=== PATIENT | male | born 1965 | race Caucasian/White ===

== ENCOUNTER 2019-03-31 15:39 | Emergency (ER) | payer OTHER ==
[~2019-03-31] VITALS: Ht 185.4 cm; Wt 77.1 kg
[2019-03-31] MEDS ORDERED: DEPAKOTE125 MG PO (15:42)
[2019-03-31] MEDS ORDERED: WELLBUTRIN XL150 M1 ORAL (15:42)
[2019-03-31] MEDS ORDERED: KLONOPIN2 MG PO (15:42)
--- NOTE | 2019-03-31 15:49 | NUR ---
ED Nurse Note: PT BROUGHT IN BY [facility], PER EMS REPORT PT WAS COMING DOWN FROM A UPPER BUNK BED AND FELL ON HIS LEG, CURRENTLY C/O LEFT LEG PAIN. NOTED ABRASION AND CONTUSION ON DANIEL KNEE AND LEGS, NOTED SMALL LAC AND CONTUSION ON LEFT EYE AREA NO ACTIVE BLEEDING AT THIS TIME NOTED. ER PROVIDER AT THE BEDSIDE. CMS INTACT AND CAP REFILL <3SEC, +2 PEDAL PULSES. PT DENIES LOC, PT AA&OX4, GCS=15 NOTED. WILL CONT MONITOR.
[2019-03-31] MEDS ORDERED: Morphine Sulfate 2mg/ml Inj(IV/IM USE ONLY) IM ONE (16:00)
[2019-03-31] MEDS ORDERED: Tetanus/Diptheria/Pertussis IM ONE (16:30)
--- NOTE | 2019-03-31 16:44 | Diagnostic Imaging Report ---
FILM PELVIS: Single image FINDINGS: Displaced fracture of the left femoral neck with shortening and varus deformity. No evidence of dislocation. Lower lumbar spondylosis discogenic change. IMPRESSION: Displaced fracture of the left femoral neck with shortening and varus deformity. No evidence of dislocation. <MYCVCSECTION> Critical Value Communications 03 31 19 16:40 Call Doctor Regarding Above results, called Kofi HERNANDEZ on 03 31 16:39 (-07:00)
[2019-03-31] MEDS ORDERED: Lidocaine 1% Plain 30 ml INJ ONE (16:45)
--- NOTE | 2019-03-31 16:48 | Diagnostic Imaging Report ---
History: PAIN Exam: XR LEFT FEMUR 2 views, 4 total images Comparison: None available FINDINGS: Displaced fracture of the left femoral neck with shortening and varus deformity. Not much osseous component of the left femoral neck is identified and unclear if this is due to comminution or potential degree of resorption if possible subacute setting, clinically correlate. IMPRESSION: Displaced fracture of the left femoral neck with shortening and varus deformity. Not much osseous component of the left femoral neck is identified and unclear if this is due to comminution or potential degree of resorption if possible subacute setting, clinically correlate.
--- NOTE | 2019-03-31 17:02 | NUR ---
ED Nurse Note: Blood specimen sent.
[2019-03-31 17:12] VITALS: BP 138/89
[2019-03-31 17:17] LABS: HEMATOCRIT 46.6 % (42.0-52.0); HEMOGLOBIN 15.5 G/DL (14.2-18.0); MEAN CORPUSCULAR VOLUME 96 FL (80-99); PLATELET COUNT 155 K/UL (150-450); RED BLOOD COUNT 4.87 M/UL (4.70-6.10); RED CELL DISTRIBUTION WIDTH 11.4 % (11.6-14.8)
[2019-03-31 17:18] LABS: BASOPHILS % (AUTO) 0.7 % (0.0-2.0); LYMPHOCYTES % (AUTO) 5.4 % (20.0-45.0); MONOCYTES % (AUTO) 7.6 % (1.0-10.0); NEUTROPHILS % (AUTO) 86.3 % (45.0-75.0)
--- NOTE | 2019-03-31 17:21 | Diagnostic Imaging Report ---
History: FALL Exam: CT HEAD Without Contrast Technique more: CTDI is 71.30 mGy and DLP is 2298.60 mGy-cm. Technique more: One or more of the following dose reduction techniques were used: automated exposure control, adjustment of the mA and or kV according to patient size, use of iterative reconstruction technique. Comparison: None available FINDINGS: Motion and right frontal ring artifact limits the evaluation. No evidence of intracranial hemorrhage, mass effect, calvarial fracture or large vascular territory acute infarct identified. The ventricles appear within limits and midline. Old appearing bilateral caudate and right basal ganglia lacunar infarcts noted. IMPRESSION: Motion and right frontal ring artifact limits the evaluation. No evidence of intracranial hemorrhage, mass effect, calvarial fracture or large vascular territory acute infarct identified. Old appearing bilateral caudate and right basal ganglia lacunar infarcts noted.
--- NOTE | 2019-03-31 17:25 | Emergency Room Report ---
History of Present Illness General Chief Complaint: Lower Extremity Injury Source: Patient Present Illness HPI 53-year-old male brought in by EMS complaining of left thigh/ hip pain and left eyebrow laceration fall last night and this morning. Patient states that he was climbing onto bunk bed and fell. Unable to weight-bear. Denies shortness of breath, chest pain, abdominal pain. Patient lives at an assisted living facility. Unknown last tetanus vaccine. Allergies: Coded Allergies: NSAIDS (NON-STEROIDAL ANTI-INFLAMMA (Unverified Allergy, Unknown, 03/31/19) PROCHLORPERAZINE (Verified Allergy, Unknown, 03/31/19) Uncoded Allergies: NSAIDS (Allergy, Unknown, 03/31/19) Patient History Past Medical History: psych hx, other - polycystic kidney disease Past Surgical History: none Social History: Reports: smoking Nursing Documentation-[facility] Past Medical History: No History, Except For Hx Cancer: No - POLYCYSTIC KIDNEY DISEASE History Of Psychiatric Problem: Yes Review of Systems All Other Systems: negative except mentioned in HPI Physical Exam Vital Signs Date Time Temp Pulse Resp B/P (MAP) Pulse Ox O2 Delivery O2 Flow Rate FiO2 03/31/19 15:36 100.2 99 18 112/96 (101) 94 Room Air Sp02 EP Interpretation: reviewed Respiratory: chest non-tender, lungs clear, normal breath sounds, speaking full sentences Cardiovascular #1: regular rate, rhythm, no edema Musculoskeletal: tender - tenderness to left hip. Neurologic: normal inspection, alert, oriented x3 Skin: warm/dry, other - 1.2cm laceration above left lateral eyebrow Procedures Laceration/Wound Repair Laceration/Wound Repair : Consent: Verbal Wound's Depth, Shape: linear Wound Explored: clean Irrigated w/ Saline (ccs): 50 Betadine Prep?: Yes Anesthesia: 1% Lidocaine Volume Anesthetic (ccs): 3 Wound Debrided: None Wound Repaired With: sutures Suture Size/Type: 6:0, proline Number of Sutures: 4 Layer Closure?: No Sterile Dressing Applied?: Yes Patient Tolerated: Well Complications: None Medical Decision Making PA Attestation This patient was seen under the direct supervision of Dr. Matute, who directed all aspects of care and diagnostic interpretation. Diagnostic Impression: Primary Impression: Hip fracture Qualified Codes: S72.002A - Fracture of unspecified part of neck of left femur , initial encounter for closed fracture Additional Impression: Eyebrow laceration Qualified Codes: S01.112A - Laceration without foreign body of left eyelid and periocular area, initial encounter ER Course ED course 53-year-old male brought in by EMS complaining of left hip/thigh pain and left eyebrow laceration since last night after fall from bunk bed. Laceration on left lateral eyebrow repaired with four 6-0 Prolene sutures. Tdap vaccine given. Left hip, left femur, pelvis shows fracture of the left femoral neck with shortening and varus deformity. No acute findings on head CT and maxillofacial CT. Patient initially medicated with morphine. Discussed with Dr. Skinner at 1730, for MedSurg transfer to [facility] Impression: Left eyebrow laceration, Left hip fracture. Disposition: transfer to [facility] Laboratory Tests Test 03/31/19 17:00 White Blood Count 8.0 K/UL (4.8-10.8) Red Blood Count 4.87 M/UL (4.70-6.10) Hemoglobin 15.5 G/DL (14.2-18.0) Hematocrit 46.6 % (42.0-52.0) Mean Corpuscular Volume 96 FL (80-99) Mean Corpuscular Hemoglobin 31.8 PG (27.0-31.0) H Mean Corpuscular Hemoglobin Concent 33.2 G/DL (32.0-36.0) Red Cell Distribution Width 11.4 % (11.6-14.8) L Platelet Count 155 K/UL (150-450) Mean Platelet Volume 8.5 FL (6.5-10.1) Neutrophils (%) (Auto) 86.3 % (45.0-75.0) H Lymphocytes (%) (Auto) 5.4 % (20.0-45.0) L Monocytes (%) (Auto) 7.6 % (1.0-10.0) Eosinophils (%) (Auto) 0.0 % (0.0-3.0) Basophils (%) (Auto) 0.7 % (0.0-2.0) Prothrombin Time 10.2 SEC (9.30-11.50) Prothrombin Time INR 1.0 (0.9-1.1) PTT 28 SEC (23-33) Sodium Level 138 MMOL/L (136-145) Potassium Level 4.5 MMOL/L (3.5-5.1) Chloride Level 101 MMOL/L (98-107) Carbon Dioxide Level 30 MMOL/L (21-32) Anion Gap 7 mmol/L (5-15) Blood Urea Nitrogen 21 mg/dL (7-18) H Creatinine 2.0 MG/DL (0.55-1.30) H Estimate Glomerular Filtration Rate 35.3 mL/min (>60) Glucose Level 107 MG/DL (74-106) H Calcium Level 9.2 MG/DL (8.5-10.1) EKG Diagnostic Results EKG Time: 16:49 EP Interpretation: Interpreted by Dr. Matute Rate: normal - HR 88 Rhythm: NSR ST Segments: no acute changes Other X-Ray Diagnostic Results Other X-Ray Diagnostic Results #1: X-Ray ordered: left hip + pelvis # of Views/Limited Vs Complete: 2 View Indication: Pain EP Interpretation: Yes PA Xray: Interpretation reviewed, by supervising MD, and agrees with findings. Impression: Other - Displaced fracture of the left femoral neck with shortening and varus deformity Other X-Ray Diagnostic Results #2: X-Ray ordered: left femur # of Views/Limited Vs Complete: 2 View Indication: Pain EP Interpretation: Yes Impression: Other - Please fracture of the left femoral neck with shortening and varus deformity. CT/MRI/US Diagnostic Results CT/MRI/US Diagnostic Results #1: Imaging Test Ordered: head CT (without contrast) Impression No evidence of intracranial hemorrhage, mass-effect, calvarial fracture or large vascular territory acute infarct identified. Old appearing bilateral caudate and right basal ganglia are lunar infarcts noted. Interpreted by radiology CT/MRI/US Diagnostic Results #2: Imaging Test Ordered: maxillofacial CT (without contrast) Impression Old appearing fracture deformity involving the medial aspect of the right frontal sinus and nasoethmoid junction. Right medial orbital wall fracture deformity may nonacute. No adjacent ethmoid air cell opacification or orbtial emphysema. Nasal fracture deformities appear nonacute. No overlying soft tissue swelling. Interpreted by radiology. Last Vital Signs Date Time Temp Pulse Resp B/P (MAP) Pulse Ox O2 Delivery O2 Flow Rate FiO2 03/31/19 17:12 99.1 98 18 138/89 96 Room Air Status: improved Disposition: DISC/XFER TO A [facility] Admit Decision Time: 17:30 - discussed with Dr. Skinner Condition: Stable Referrals: [facility],REFERRING (PCP) Valerie Kirby Mar 31, 2019 17:25
[2019-03-31 17:33] LABS: ANION GAP 7 mmol/L (5-15); BLOOD UREA NITROGEN 21 mg/dL (7-18); CALCIUM 9.2 MG/DL (8.5-10.1); CARBON DIOXIDE 30 MMOL/L (21-32); CHLORIDE 101 MMOL/L (98-107); POTASSIUM 4.5 MMOL/L (3.5-5.1); SODIUM 138 MMOL/L (136-145)
--- NOTE | 2019-03-31 17:33 | Diagnostic Imaging Report ---
History: FALL Exam: CT MAXILLOFACIAL Without Contrast Technique more: CTDI is 98.00 mGy and DLP is 2627.90 mGy-cm. Technique more: One or more of the following dose reduction techniques were used: automated exposure control, adjustment of the mA and or kV according to patient size, use of iterative reconstruction technique. Comparison: None available FINDINGS: Old appearing fracture deformity involving the medial aspect of the right frontal sinus and naso-ethmoid junction. Right medial orbital wall fracture deformity may be nonacute. No adjacent ethmoid air cell opacification or orbital emphysema. Nasal fracture deformities appear nonacute. No overlying soft tissue swelling. Globes appear intact without retrobulbar stranding. Small mucous retention cyst right maxillary sinus. The mastoids are clear. The TMJs appear normally located. IMPRESSION: Old appearing fracture deformity involving the medial aspect of the right frontal sinus and naso-ethmoid junction. Right medial orbital wall fracture deformity may be nonacute. No adjacent ethmoid air cell opacification or orbital emphysema. Nasal fracture deformities appear nonacute. No overlying soft tissue swelling.
[2019-03-31] MEDS ORDERED: LORazepam Inj 2mg/ml 1ml IV ONE (18:00)
--- NOTE | 2019-03-31 18:09 | NUR ---
ED Nurse Note: Report given to Radha MADISON of [facility].
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
[2019-03-31 19:10] VITALS: BP 135/79
--- NOTE | 2019-03-31 19:10 | NUR ---
ED Nurse Note: Report given to [facility] ambulance staff. Pt transferred via gurney with all belongings sent with him.
--- NOTE | 2019-04-02 17:27 | Cardiology Report ---
APPROVED REPORT EKG Measurement Heart [id number] Normal sinus rhythm Normal ECG
== END 2019-03-31 19:10 | disposition short-term general hospital (02) ==
LOC: EDBD 15:39 → EMR 15:58
DX: S72.002A Fracture of unspecified part of neck of left femur, initial encounter for closed fracture (principal); S01.112A Laceration without foreign body of left eyelid and periocular area, initial encounter; Q61.3 Polycystic kidney, unspecified; Z23 Encounter for immunization; Z88.8 Allergy status to other drugs, medicaments and biological substances; W08.XXXA Fall from other furniture, initial encounter; Y92.122 Bedroom in nursing home as the place of occurrence of the external cause
CPT/HCPCS: 12001; 36415; 70450; 70486; 71045; 73510; 73552; 80048; 85025; 85610; 85730; 86850; 86900; 86901; 90471; 90715; 93005; 96372; 96374; J2001; J2270; Z7502; 73502; 99284

== ENCOUNTER 2019-04-29 10:18 | Emergency (ER) | payer OTHER ==
[~2019-04-29] VITALS: Ht 185.4 cm; Wt 68.0 kg
[~2019-04-29 10:18] MED LIST: DEPAKOTE125 MG PO; KLONOPIN2 MG PO; WELLBUTRIN XL150 M1 ORAL
[2019-04-29 10:37] VITALS: BP 100/49
--- NOTE | 2019-04-29 10:38 | NUR ---
ED Nurse Note: Patient walked in to ER from [facility] he is statying due to BLE pain. pt aao x4 but mild anxiety noted while talking. skin clean and intact. calm and cooperative. no acute distress noted at this time.
--- NOTE | 2019-04-29 11:20 | NUR ---
ED Nurse Note: ERMD at bedside.
--- NOTE | 2019-04-29 11:36 | NUR ---
Tawny dominique in EDM - 04/29/19 at 1151 by [email or web address] ED Nurse Note: Stiching at bedside.
[2019-04-29 11:50] VITALS: BP 108/54
--- NOTE | 2019-04-29 11:51 | NUR ---
ED Nurse Note: Pt cleared by health care Provider for discharge. DC instructions was given and explained to pt and verbalized understanding of teachings. All medical deviecs such as ID band removed. Pt is AAO x4, ambulatory and left with all personal belongings. pt provided transporation.
--- NOTE | 2019-04-29 11:51 | NUR ---
ED Nurse Note: pt had Lt hip replacement surgery a week ago and the surgical site has wound vac.
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
== END 2019-04-29 11:50 | disposition home or self-care (01) ==
LOC: EMR 10:28
DX: S80.10XA Contusion of unspecified lower leg, initial encounter (principal); Y09 Assault by unspecified means; Y92.9 Unspecified place or not applicable
CPT/HCPCS: 99281